=== PATIENT | female | born 1970 | race Caucasian/White ===

== ENCOUNTER → 2019-01-30 06:17 | Outpatient (CLI) | payer OTHER, SELFPAY ==
--- NOTE | 2019-01-30 06:25 | NM_ITS ---
SPECT MYOCARDIAL PERFUSION SCAN, REST AND STRESS: EXERCISE STRESS: [facility] REVIEW QGS EF AND WALL MOTION EVALUATION: QPS - PERFUSION EVALUATION: HISTORY: CHEST PAIN PROCEDURE: Rest imaging performed after administration of10.76 millicuries Tc MIBI. Dose administered at6:35AM a.m., with imaging thereafter. Stress imaging was then performed following7 minutes 31 seconds of exercise stress. The patient achieved a heart [id number] with projected heart rate of132 . Resting BP146/64 with stress 170/82. At maximum exercise stress,31.4 millicuries Tc MIBI administered at8:10AM a.m. with bydcyef21 minutes thereafter. FINDINGS: Perfusion Evaluation: The single slice spect images as well as the [facility] bull's-eye data summary were reviewed. Wall Motion and Ejection Fraction Evaluation: Gated SPECT review and analysis used to evaluate these features. There is a 63 % left ventricular ejection fraction. There seems to be good wall motion Stress images reveal severely decreased activity in the anterior wall while rest images reveal moderately decreased activity IMPRESSION: Reversible ischemia in the anterior wall with normal ejection fraction normal wall motion. High risk abnormal stress test
--- NOTE | 2019-01-30 08:40 | HMH.ITSHM ---
Current Home Medications as stated by this patient Mala Silverio or quality audit representative. [] asa lisinopril hctz
== END ==
PROVIDERS: Visit Provider Internal Medicine
DX: R07.9 Chest pain, unspecified (principal); I10 Essential (primary) hypertension; R60.0 Localized edema; F17.200 Nicotine dependence, unspecified, uncomplicated; Z82.3 Family history of stroke
CPT/HCPCS: 78452; 93017; 93306; A9502

== ENCOUNTER 2019-04-07 18:26 | Emergency (ER) | payer OTHER, SELFPAY ==
[2019-04-07 18:37] VITALS: BP 121/58; PULSE 88; RESP 17; TEMP 36.9; O2SAT 98; BMI 38.2
[2019-04-07 18:51] VITALS: BP 145/66; PULSE 84; RESP 20; TEMP 36.6; O2SAT 98; BMI 39.4
--- NOTE | 2019-04-07 18:59 | HMH.EDUTC ---
[facility] [place] Impression: Abscess Cellulitis Qualifiers: Site of cellulitis: unspecified site Qualified Code(s): L03.90 - Cellulitis, unspecified Disposition: Home, Self-Care Condition on Discharge: Good Instructions: Cellulitis, Boil, DI for Skin Abscess Additional Instructions: *Start antibiotic(s) immediately and be sure to take as ordered for the FULL length of time although you may be feeling better or start to see improvement in the next 24-48 hours *Monitor closely. Outlined redness so that you can monitor easier. Follow up immediately for new or worsening symptoms including but not limited to redness, swelling, streaking from site fever or chills. *Warm compress 15 minutes 3-4 times day *Never squeeze or pop these on your own. Seek immediate medical attention next time this occurs *Monitor Temp. Tylenol every 4 hours as needed and ibuprofen every 6 hours as needed (as long as your primary care doctor has told you that it is ok to take both. For fever, aches, pain. ER if no less that 101 despite Tylenol and ibuprofen Follow up with your family doctor/primary care physician in the next 48-72 hours if no improvement and for re-evaluation of area to monitor for improvement or worsening Straight to ER if any life threatening symptoms Prescriptions: Clindamycin HCl [Clindamycin HCl 300mg Cap] 300 mg PO Q6 10 Days #40 cap Referrals: Provider,Referral, MD [Primary Care Provider] - As needed (Follow up in 48-72 hours for re-evaluation of area on back) Time of Disposition: 19:13 Medical Decision Making - Julio Inquiry Pt receiving controlled substance: No Julio was queried for this patient: No Vital Signs: 04/07/19 18:37 04/07/19 18:51 Temperature 98.4 F 97.8 F Temperature Source Oral Oral Pulse Rate [Left Radial] 88 84 Respiratory Rate 17 20 Blood Pressure [Right Arm] 121/58 L 145/66 H Blood Pressure Mean [Right Arm] 79 92 Blood Pressure Source [Right Arm] Automatic Cuff Blood Pressure Position [Right Arm] Supine 02 Sat by Pulse Oximetry 98 98 Oxygen Delivery Method Room Air Room Air [facility] [place] - General Stated complaint: knot on back Time Seen by Provider: 04/07/19 18:59 Mode of Arrival: Ambulatory Source of Information: Patient Limitations: No Limitations Description of Symptoms (Recalled from Triage Doc. by RN): PT C/O SWOLLEN BUMP ON BACK. PT STATES IT HAS BEEN THERE FOR 2-3 YEARS BUT IT HAS NEVER BEEN SORE UNTIL ABOUT 3 DAYS AGO. HEENT Symptoms (Recalled from RN notes): No Resp Symptoms (Recalled from RN notes): No Skin Symptoms (Recalled from RN notes): Yes MS Symptoms (Recalled from RN notes): No Functional Status (Recalled from RN notes): N/A - History of Present Illness Provider Complaint: Patient state that she has had a cyst like area on her right shoulder area for about 7yrs and at times it will swell up and they will mash it and get white stuff out of it and it will go away and then come back State that for about the last 3 days it has been swelling and sore State that mashed it again and nothing come out now it is red, warm and swollen and sore State that she was worried that it was getting infected or abscessed - Related Data Previous Rx's Medication Instructions Recorded Aspirin [Aspir 81] 81 mg PO DAILY #30 tablet. 01/07/19 furosemide 20 mg tablet 20 mg PO DAILY PRN #30 tab 03/03/19 lisinopril 20 1 tab PO DAILY #30 tab 03/12/19 mg-hydrochlorothiazide 12.5 mg tablet Clindamycin HCl [Clindamycin HCl 300 mg PO Q6 10 Days #40 cap 04/07/19 300mg Cap] Allergies Allergy/AdvReac Type Severity Reaction Status Date / Time amoxicillin Allergy Verified 03/03/19 14:16 - Worker's Comp Is this a Worker's Comp case?: No [facility] History - Hepatitis A Screen Drug use history?: No High risk sexual behaviors?: No History of sexually transmitted infection?: No Currently employed?: No Childcare worker?: No Do you have indoor plumbing?: Yes Do you
--- NOTE | 2019-04-07 19:04 | ED_ITS ---
[facility] [place] Clinical Impression: Abscess Cellulitis Qualifiers: Site of cellulitis: unspecified site Qualified Code(s): L03.90 - Cellulitis, unspecified Disposition: Home, Self-Care Condition on Discharge: Good Instructions: Cellulitis, Boil, DI for Skin Abscess Additional Instructions: *Start antibiotic(s) immediately and be sure to take as ordered for the FULL length of time although you may be feeling better or start to see improvement in the next 24-48 hours *Monitor closely. Outlined redness so that you can monitor easier. Follow up immediately for new or worsening symptoms including but not limited to redness, swelling, streaking from site fever or chills. *Warm compress 15 minutes 3-4 times day *Never squeeze or pop these on your own. Seek immediate medical attention next time this occurs *Monitor Temp. Tylenol every 4 hours as needed and ibuprofen every 6 hours as needed (as long as your primary care doctor has told you that it is ok to take both. For fever, aches, pain. ER if no less that 101 despite Tylenol and ibuprofen Follow up with your family doctor/primary care physician in the next 48-72 hours if no improvement and for re-evaluation of area to monitor for improvement or worsening Straight to ER if any life threatening symptoms Prescriptions: Clindamycin HCl [Clindamycin HCl 300mg Cap] 300 mg PO Q6 10 Days #40 cap Referrals: Provider,Referral, MD [Primary Care Provider] - As needed (Follow up in 48-72 hours for re-evaluation of area on back) Time of Disposition: 19:13 Medical Decision Making - Julio Inquiry Pt receiving controlled substance: No Julio was queried for this patient: No Vital Signs: 04/07/19 18:37 04/07/19 18:51 Temperature 98.4 F 97.8 F Temperature Source Oral Oral Pulse Rate [Left Radial] 88 84 Respiratory Rate 17 20 Blood Pressure [Right Arm] 121/58 L 145/66 H Blood Pressure Mean [Right Arm] 79 92 Blood Pressure Source [Right Arm] Automatic Cuff Blood Pressure Position [Right Arm] Supine 02 Sat by Pulse Oximetry 98 98 Oxygen Delivery Method Room Air Room Air [facility] [place] HPI - General Stated complaint: knot on back Time Seen by Provider: 04/07/19 18:59 Mode of Arrival: Ambulatory Source of Information: Patient Limitations: No Limitations Description of Symptoms (Recalled from Triage Doc. by RN): PT C/O SWOLLEN BUMP ON BACK. PT STATES IT HAS BEEN THERE FOR 2-3 YEARS BUT IT HAS NEVER BEEN SORE UNTIL ABOUT 3 DAYS AGO. HEENT Symptoms (Recalled from RN notes): No Resp Symptoms (Recalled from RN notes): No Skin Symptoms (Recalled from RN notes): Yes MS Symptoms (Recalled from RN notes): No Functional Status (Recalled from RN notes): N/A - History of Present Illness Provider Complaint: Patient state that she has had a cyst like area on her right shoulder area for about 7yrs and at times it will swell up and they will mash it and get white stuff out of it and it will go away and then come back State that for about the last 3 days it has been swelling and sore State that mashed it again and nothing come out now it is red, warm and swollen and sore State that she was worried that it was getting infected or abscessed - Related Data Previous Rx's Medication Instructions Recorded Aspirin [Aspir 81] 81 mg PO DAILY #30 tablet. 01/07/19 furosemide 20 mg tablet 20 mg PO DAILY PRN #30 tab 03/03/19 lisinopril 20 1 tab PO DA
[2019-04-07 19:14] VITALS: BP 126/66; PULSE 65; RESP 18; TEMP 36.6; O2SAT 100
== END 2019-04-07 19:17 | disposition home or self-care (01) ==
PROVIDERS: Emergency Provider Nurse Practitioner
DX: L02.413 Cutaneous abscess of right upper limb (principal); I10 Essential (primary) hypertension; F17.210 Nicotine dependence, cigarettes, uncomplicated
CPT/HCPCS: 99201

== ENCOUNTER → 2019-05-21 13:01 | Outpatient (CLI) | payer OTHER, SELFPAY ==
[2019-05-21 14:39] LABS: Anion Gap 12.7 mEq/L (5-15); Blood Urea Nitrogen 15 mg/dL (7-18); Calcium 8.9 mg/dL (8.5-10.1); Carbon Dioxide 28 mmol/L (21.0-32.0); Chloride 105 mmol/L (98-107); Creatinine,Serum 0.91 mg/dL (0.55-1.02); Estimated Glomerular Filt Rate 66 ml/min (>60); GFR (African American) 80 ML/MIN (>60); Glucose 111 mg/dL (74-106); Potassium 3.7 mmoL/L (3.5-5.1); Sodium 142 mmol/L (136-145)
== END ==
PROVIDERS: Visit Provider Nurse Practitioner Family
DX: R94.30 Abnormal result of cardiovascular function study, unspecified (principal); I10 Essential (primary) hypertension; Z72.0 Tobacco use; Z82.49 Family history of ischemic heart disease and other diseases of the circulatory system
CPT/HCPCS: 36415; 80048

== ENCOUNTER → 2019-05-25 08:46 | Outpatient (CLI) | payer OTHER, SELFPAY ==
--- NOTE | 2019-05-25 09:00 | MM_ITS ---
MM Dig screening mamm BI w/CAD ORDERING PHYSICIAN : Feliciano Pham MD PATIENT AGE: 49 years GENDER: Female COMPARISON: Baseline study, with no previous for comparison INDICATION: routine screening mammogram. No hormones. No new complaints . Noncontributory family history. TECHNIQUE: Standard CC and MLO images were obtained. R2 CAD reviewed. FINDINGS: . This is a baseline study. Slight, beaded, nodular character the fibroglandular elements at retroareolar region bilaterally but no particular suspicious finding. There are some minor findings, & subtle densities bilaterally. RIGHT mammogram. There is a small 5 mm x4 mm nodule with a 3 tiny punctate tiny calcifications at its margin lateral right breast. More likely benign features. Considered spot views but I believe bilateral follow-up overall would be most appropriate and best approach given these most likely benign appearance bilaterally . LEFT BREAST:. Also see slight . Slightly beaded , subtle nodularity at the retroareolar region left breast is most likely due to ductal prominence in changes, dissipates from one view to another. Howeverrecommend a bilateral follow-up follow-up mammogram in i 6 months to establish baseline and stability of these minor observations, & mild asymmetry. Hopefully likely routine protocol thereafter ... IMPRESSION: ......- 1. Baseline mammogram.-No previous . Slightly beaded, subtle nodular parenchymal pattern at retroareolar region bilaterally likely reflecting mild ductal prominence. 2. Right mammogram: Small discrete 5 mm X 4 mm nodule deep lateral right breast with 3 tiny punctate calcifications at its margin.. Favor most likely benign feature. Recommend 6 month follow-up as I believe would be most optimal/feasible approach to confirm stability & better establish baseline 3. Left mammogram.. Slightly beaded/subtle nodular character retroareolar region likely more evident on the left than right-as stated likely reflecting mild ductal prominence pattern. However left breast would also benefit from 6 month follow-up as well to better establish baseline This pattern with routine protocol for thereafter BI-RADS Category: 3 Probably Benign Finding Short Term Follow-up RECOMMENDED FOLLOW-UP: 6M 6 MONTH FOLLOW-UP Bilateral follow-up mammogram 6 months recommended - (A letter has been sent to the patient regarding results of the study.) .
[2019-05-25 10:04] LABS: Basophils % 0.4 % (0.1-2.0); Eosinophils # 0.2 K/mm3 (0.0-0.4); Eosinophils % 2.4 % (0.1-12.0); Hematocrit 41.9 % (37.0-47.0); Hemoglobin 13.3 g/dL (12.2-16.2); Lymphocytes # 1.4 K/mm3 (0.7-4.5); Lymphocytes % 17.6 % (10-50); Mean Corpuscular HGB Conc 31.9 g/dL (31.8-35.4); Mean Corpuscular Hemoglobin 29.7 pg (27.0-31.2); Mean Corpuscular Volume 93.2 fl (81-99); Monocytes # 0.4 K/mm3 (0.1-1.0); Monocytes % 4.6 % (1.7-9.3); Neutrophils # 5.9 K/mm3 (1.8-7.8); Platelet Count 232 K/mm3 (142-424); Red Blood Count 4.49 M/mm3 (4.20-5.40); Red Cell Distribution Width 13.6 % (11.5-17.5); White Blood Count 7.9 K/mm3 (4.8-10.8)
[2019-05-25 11:29] LABS: Alanine Aminotransferase 25 U/L (12-78); Albumin Level 3.6 gm/dL (3.4-5.0); Albumin/Globulin Ratio 1.1 (1.1-1.8); Alkaline Phosphatase 89 U/L (46-116); Anion Gap 11.2 mEq/L (5-15); Aspartate Amino Transferase 6 U/L (15-37); Bilirubin,Total 0.3 mg/dL (0.2-1.0); Blood Urea Nitrogen 15 mg/dL (7-18); Calcium 8.6 mg/dL (8.5-10.1); Carbon Dioxide 30 mmol/L (21.0-32.0); Chloride 106 mmol/L (98-107); Cholesterol 174 mg/dL (140-200); Creatinine,Serum 0.86 mg/dL (0.55-1.02); Estimated Glomerular Filt Rate 71 ml/min (>60); GFR (African American) 86 ML/MIN (>60); Globulin 3.4 gm/dl (1.3-3.2); Glucose 96 mg/dL (74-106); HDL Cholesterol 35 mg/dL (29-89); LDL Cholesterol 126 mg/dL (0-130); Potassium 4.2 mmoL/L (3.5-5.1); Sodium 143 mmol/L (136-145); Thyroid Stimulating Hormone 2.08 uIU/ml (0.358-3.740); Triglycerides 63 mg/dL (30-200); VLDL Cholesterol 13 mg/dL (0-40)
== END ==
PROVIDERS: PCP Internal Medicine Adolescent Medicine; Visit Provider Internal Medicine Adolescent Medicine
DX: Z00.00 Encounter for general adult medical examination without abnormal findings (principal); Z12.31 Encounter for screening mammogram for malignant neoplasm of breast
CPT/HCPCS: 36415; 77067; 80053; 80061; 84443; 85025

== ENCOUNTER → 2019-06-04 12:36 | Outpatient (CLI) | payer OTHER, SELFPAY ==
--- NOTE | 2019-06-04 13:00 | US_ITS ---
PROCEDURE: US TRANSVAGINAL CLINICAL INDICATION: POST MENOPAUSAL BLEEDING COMPARISON: No exams were available for comparison TECHNIQUE: FINDINGS: The uterus is retroverted and measures 63.5 by 4.5 cm. Combined endometrial thickness is 6 mm. There is a 1 x 0.7 cm area of decreased echogenicity along the dorsal surface of the uterus consistent with a small fibroid. The ovaries have an unremarkable appearance with bilateral ovarian blood flow. No cul-de-sac fluid. IMPRESSION: Retroverted uterus with small fibroid Dictated by: Ziyad Sultana MD 06/04/2019 13:58 Signed by: <Electronically signed by Ziyad Sultana MD in [place]> 06/04/2019 13:58
== END ==
PROVIDERS: PCP Nurse Practitioner Family; Visit Provider Nurse Practitioner Family
DX: N95.0 Postmenopausal bleeding (principal)
CPT/HCPCS: 76830

== ENCOUNTER → 2022-04-06 08:37 | Outpatient (CLI) | payer OTHER, SELFPAY ==
[2022-04-06 09:12] LABS: Basophils # 0.1 K/mm3 (0-0.2); Basophils % 1.4 % (0.1-2.0); Eosinophils # 0.2 K/mm3 (0.0-0.4); Eosinophils % 2.9 % (0.1-12.0); Hematocrit 42.9 % (37.0-47.0); Hemoglobin 13.6 g/dL (12.2-16.2); Lymphocytes # 1.9 K/mm3 (0.7-4.5); Lymphocytes % 24.1 % (10-50); Mean Corpuscular HGB Conc 31.8 g/dL (31.8-35.4); Mean Corpuscular Hemoglobin 30.1 pg (27.0-31.2); Mean Corpuscular Volume 94.7 fl (81-99); Monocytes # 0.5 K/mm3 (0.1-1.0); Monocytes % 5.9 % (1.7-9.3); Neutrophils # 5.2 K/mm3 (1.8-7.8); Neutrophils % 65.8 % (37.0-80.0); Platelet Count 231 K/mm3 (142-424); Red Blood Count 4.53 M/mm3 (4.20-5.40); Red Cell Distribution Width 13.9 % (11.5-17.5); White Blood Count 7.9 K/mm3 (4.8-10.8)
[2022-04-06 09:33] LABS: Chloride 109 mmol/L (98-107); Potassium 4.1 mmoL/L (3.5-5.1); Sodium 141 mmol/L (136-145)
[2022-04-06 09:35] LABS: Bilirubin,Unconjugated 0.4 mg/dL (0.0-1.1); Blood Urea Nitrogen 18 mg/dl (7-17); Estimated Glomerular Filt Rate 89 ml/min (>60); GFR (African American) 108 ML/MIN (>60)
[2022-04-06 09:36] LABS: Alanine Aminotransferase 24 U/L (12-78); Albumin Level 4.1 g/dl (3.5-5.0); Alkaline Phosphatase 79 U/L (38-126); Anion Gap 8.1 mEq/L (5-15); Aspartate Amino Transferase 24 U/L (14-36); Bilirubin,Direct 0.1 mg/dl (0.0-0.4); Bilirubin,Indirect 0.4 mg/dL (0.0-0.9); Bilirubin,Total 0.5 mg/dl (0.2-1.3); Calcium 9.5 mg/dl (8.4-10.2); Carbon Dioxide 28 mmol/L (22.0-30.0); Cholesterol 136 mg/dl (140-200); Glucose 108 mg/dl (74-100); HDL Cholesterol 34 mg/dl (40-60); Total Protein,Serum 6.7 g/dl (6.3-8.2); Triglycerides 58 mg/dl (30-150); VLDL Cholesterol 12 mg/dL (0-40)
[2022-04-06 09:47] LABS: Direct LDL Cholesterol 84.82 mg/dL (100-129)
[2022-04-06 09:53] LABS: Free T4 (Free Thyroxine) 1.06 ng/dl (0.78-2.19)
[2022-04-06 10:07] LABS: Thyroid Stimulating Hormone 1.64 uIU/mL (0.465-4.68)
== END ==
PROVIDERS: PCP Internal Medicine Adolescent Medicine; Visit Provider Nurse Practitioner Family
DX: R06.00 Dyspnea, unspecified (principal); I11.9 Hypertensive heart disease without heart failure; E11.9 Type 2 diabetes mellitus without complications; E78.2 Mixed hyperlipidemia; I63.9 Cerebral infarction, unspecified; Z72.0 Tobacco use; Z82.49 Family history of ischemic heart disease and other diseases of the circulatory system
CPT/HCPCS: 36415; 80048; 80061; 80076; 84439; 84443; 85025

== ENCOUNTER 2023-06-30 15:04 | Emergency (ER) | payer BC, SELFPAY ==
[2023-06-30 15:15] VITALS: BP 133/78; PULSE 78; RESP 18; TEMP 36.8; O2SAT 99; BMI 39.1
--- NOTE | 2023-06-30 15:39 | EXP.UTC ---
Discharge Plan Disposition Patient Disposition: Home, Self-Care Condition: Good Prescriptions Prescriptions: New ondansetron 4 mg tablet,disintegrating 4 mg PO Q8H PRN (Reason: nausea and vomiting) Qty: 10 0RF No Action gabapentin 300 mg capsule 300 mg PO TID celecoxib 100 mg capsule 100 mg PO BID fluticasone propionate 50 mcg/actuation spray,suspension 1 spray intranasal DAILY Patient Comments: SPRAY ONE (1) SPRAY EVERY DAY BY INTRANASAL ROUTE. loratadine 10 mg tablet 10 mg PO DAILY cholecalciferol (vitamin D3) 1,250 mcg (50,000 unit) capsule 50,000 unit PO WEEKLY Patient Comments: TAKE ONE (1) CAPSULE BY MOUTH WEEKLY (TAKE IN ADDITION TO CALTRATE) calcium carbonate-vitamin D3 600 mg-20 mcg (800 unit) tablet 1 tab PO DAILY Patient Comments: TAKE ONE (1) TABLET EVERY DAY BY MOUTH guaifenesin [Mucus Relief ER] 600 mg tablet extended release 12hr 1,200 mg PO ONCE Patient Comments: TAKE TWO (2) TABLET TWICE A DAY BY ORAL ROUTE. furosemide 20 mg tablet See Rx Instructions .ROUTE .COMPLEX Qty: 30 11RF Dose Instruction: TAKE ONE TABLET BY MOUTH ONCE A DAY NEEDED FOR EDEMA Rx Instructions: TAKE ONE TABLET BY MOUTH ONCE A DAY NEEDED FOR EDEMA doxycycline hyclate 100 mg capsule 100 mg PO BID Patient Comments: TAKE ONE (1) CAPSULE TWICE A DAY BY ORAL ROUTE FOR 10 DAYS. lisinopril-hydrochlorothiazide 20-12.5 mg tablet 1 tab PO DAILY aspirin 81 MG tablet,delayed release (DR/EC) 81 mg PO DAILY Referrals Follow up/Referrals: Lam Davis APRN [Primary Care Provider] - See instructions Activity Restrictions/Add. Instructions Additional Instructions/Restrictions: *Monitor Temp, Over the counter Motrin or Tylenol as directed/as needed Tylenol every 4 hours and Motrin every 6 hours (as long as your family doctor has told you that you can take it) for fever or pain. and straight to ER if unable to lower temp less than 101.0 after medication given *Warm salt water gargles may help to soothe the throat *Throat Lozenges? *Warm fluids like tea with honey may help to soothe the throat? *Sleep elevated *Humidifier/Vaporizer Continue taking Doxycycline as prescribed for sinus infection Follow up IMMEDIATELY for new or worsening symptoms or no Noticeable improvement over the next 48-72 hours. 911 for difficulty breathing or swallowing Clinical Impressions Clinical Impression: Sinusitis Qualifiers: Sinusitis location: unspecified location Chronicity: unspecified Qualified Code(s): J32.9 - Chronic sinusitis, unspecified Stand Alone Forms Stand Alone Forms: Work/School Release Instructions Patient Instructions: DI for Sinusitis, Sinusitis Discharge ED Provider: Debbi Aguilar [facility] [place] General Stated complaint: H/A, vomitng, bilateral ear pain, body aches Mode of Arrival: Ambulatory Source of Information: Patient Limitations: No Limitations Time Seen by Provider: 06/30/23 15:39 Description of Symptoms (Recalled from Triage Doc. by RN): PATEL, Ears hurting, vomiting, fever, and nausea. Has been on doxy for sinus infection. HEENT Symptoms (Recalled from RN notes): Yes Resp Symptoms (Recalled from RN notes): No Skin Symptoms (Recalled from RN notes): No MS Symptoms (Recalled from RN notes): No Functional Status (Recalled from RN notes): n/a History of Present Illness Provider Complaint: Patient states that she seen her PCP on Saturday and was dx with sinus infection and started on Doxy States that she has been taking it and today she woke up took her medication and her stomach was upset and she started vomiting States that she is still having some sinus pressure, headache, chills feeling achy, ears hurting and nausea States that she didnt know if her infection was getting worse so she came in to get checked States that she is still having some nausea and a
[2023-06-30 16:29] VITALS: BP 133/78; PULSE 78; RESP 18; TEMP 36.8; O2SAT 99
== END 2023-06-30 16:29 | disposition home or self-care (01) ==
PROVIDERS: Emergency Provider Nurse Practitioner; PCP Nurse Practitioner Family
DX: J01.90 Acute sinusitis, unspecified (principal); R11.2 Nausea with vomiting, unspecified; F17.210 Nicotine dependence, cigarettes, uncomplicated
CPT/HCPCS: 99204; 99212; G0463